=== PATIENT | male | born 1990 | race Two or more races ===

== ENCOUNTER 2020-08-11 10:04 | Outpatient (REF) | payer OTHER, SELFPAY | END 2020-08-11 10:05 | disposition home or self-care (01) | LOC: HO.LAB 10:04 | PROVIDERS: Visit Provider Internal Medicine | DX: Z20.828 Contact with and (suspected) exposure to other viral communicable diseases (principal) | CPT/HCPCS: C9803; U0003 ==

== ENCOUNTER 2020-10-07 08:46 | Outpatient (REF) | payer OTHER, SELFPAY | END 2020-10-07 08:47 | disposition home or self-care (01) | LOC: HO.LAB 08:46 | PROVIDERS: Visit Provider Internal Medicine | DX: Z20.822 Contact with and (suspected) exposure to COVID-19 (principal) | CPT/HCPCS: 36415; C9803; U0003 ==